=== PATIENT | female | born 1945 | race Caucasian/White ===

== ENCOUNTER 2018-08-10 09:00 | Day surgery (SDC) | payer MEDICARE, BC ==
[2018-08-10] MEDS ORDERED: LACTATED RINGERS 1,000 ML IV ONE (09:46)
[2018-08-10] MEDS ORDERED: MIDAZOLAM 2 MG/2 ML VIAL IVP ONE (11:01)
[2018-08-10] MEDS ORDERED: fentaNYL 100 MCG/2 ML VIAL IVP ONE (11:01)
[2018-08-10 11:18] VITALS: BP 125/81
== END 2018-08-10 09:01 | disposition home or self-care (01) ==
LOC: SDS 09:00
PROVIDERS: ATTEND Surgery
PROC: 0DJD8ZZ Inspection of Lower Intestinal Tract, Via Natural or Artificial Opening Endoscopic (ICD-10-PCS; principal; 2018-08-10 10:30)
DX: R19.5 Other fecal abnormalities (principal); K64.8 Other hemorrhoids
CPT/HCPCS: 45378; J7120